=== PATIENT | female | born 1945 | race Asian ===

== ENCOUNTER → 2018-03-01 | Outpatient (CLI) | payer OTHER, MEDICAID | LOC: FIMAGING 08:22 | PROVIDERS: ATTEND Orthopaedic Surgery | DX: M75.122 Complete rotator cuff tear or rupture of left shoulder, not specified as traumatic (principal); M75.82 Other shoulder lesions, left shoulder; M75.22 Bicipital tendinitis, left shoulder; M19.012 Primary osteoarthritis, left shoulder; M25.712 Osteophyte, left shoulder ==

== ENCOUNTER → 2018-08-07 | Outpatient (CLI) | payer OTHER, MEDICAID | LOC: CIMAGING 13:27 | PROVIDERS: ATTEND Family Medicine | DX: M19.071 Primary osteoarthritis, right ankle and foot (principal); H91.90 Unspecified hearing loss, unspecified ear; H93.13 Tinnitus, bilateral | CPT/HCPCS: 73630-PO ==